=== PATIENT | male | born 1990 | race Caucasian/White ===

== ENCOUNTER → 2018-10-05 | Outpatient (CLI) | payer MEDICAID | LOC: LAB 16:45 | PROVIDERS: ATTEND Internal Medicine Hematology & Oncology | DX: D68.0 Von Willebrand disease (principal) | CPT/HCPCS: 36415; 85576 ==

== ENCOUNTER 2019-01-29 05:36 | Outpatient (CLI) | payer MEDICAID ==
[~2019-01-29] VITALS: Ht 177 cm; Wt 34.0 kg
[2019-01-29] MEDS ORDERED: LIQUID SILVER PEG (14:13)
[2019-01-29] MEDS ORDERED: AZIT250T12 PEG (14:13)
[2019-01-29] MEDS ORDERED: ARGI500T PEG (14:13)
[2019-01-29] MEDS ORDERED: ATEN25TA PEG (14:13)
[2019-01-29] MEDS ORDERED: UBID1CAP53 PEG (14:13)
[2019-01-29] MEDS ORDERED: SLIPPERY ELM PEG (14:13)
[2019-01-29] MEDS ORDERED: LEVO50TA6 PEG (14:13)
[2019-01-29] MEDS ORDERED: CHOL10003 PEG (14:13)
[2019-01-29] MEDS ORDERED: ASCO100025 PEG (14:13)
[2019-01-29] MEDS ORDERED: L.AC1CAP6 PEG (14:13)
[2019-02-01] MEDS ORDERED: CBD OIL PEG (14:02)
[2019-02-01] MEDS ORDERED: [UNRECOGNIZED DRUG - CODE] PEG (14:02)
[2019-02-01] MEDS ORDERED: LIVER SUPPLEMENT PEG (14:02)
== END 2019-01-29 14:38 | disposition home or self-care (01) ==
LOC: PREOP 05:36
PROVIDERS: ATTEND Specialist
DX: Z01.818 Encounter for other preprocedural examination (principal)